=== PATIENT | male | born 1935 | race Caucasian/White ===

== ENCOUNTER 2016-12-30 07:31 | Day surgery (SDC) | payer MEDICARE, BC ==
[~2016-12-30 07:31] MED LIST: Lactated Ringers 1,000 ML IV SCH
[2016-12-30] MEDS ORDERED: Lidocaine 2% 100 MG/5 ML Syringe IVPUSH ONE (07:32)
[2016-12-30] MEDS ORDERED: Propofol 200 MG/20 ML SDV IV ONE (07:32)
--- NOTE | 2016-12-30 09:43 | PCM.OPNOTE ---
- General Post-Op/Procedure Note Date of Surgery/Procedure: 12/30/16 Operative Procedure(s): egd with bx. c scope with bx Findings: gastritis ascending colon polyp x2 sigmoid diverticulosis Pre Op Diagnosis: heme + stools Post-Op Diagnosis: gastritis. ascending colon polyp x2. sigmoid diverticulosis Anesthesia Technique: MAC Primary Surgeon: Esteban Shah Anesthesia Provider: Magdi Levine Pathology: stomach duodenum ascending colon polyp x2 Complications: None Condition: Good Free Text/Narrative:: see dictation
--- NOTE | 2016-12-30 10:26 | OR ---
DATE OF OPERATION: 12/30/2016 SURGEON: Esteban Shah MD PROCEDURE PERFORMED: Esophagogastroduodenoscopy and colonoscopy; both with cold forceps biopsy. PREOPERATIVE DIAGNOSIS: Heme-positive stools. POSTOPERATIVE DIAGNOSIS: Gastritis and ascending colon polyps x2 as well as sigmoid diverticulosis. INDICATIONS FOR PROCEDURE: This is a 81-year-old white male, who is referred with a recent laboratory finding of blood in the stool. He was offered and accepted upper and lower endoscopy. DESCRIPTION OF PROCEDURE: After an excellent IV sedation was administered, the bite block was inserted. The flexible endoscope was passed without difficulty down the patient's esophagus into the stomach. The stomach was insufflated, scope was passed through the pylorus to the second portion of the duodenum and slowly withdrawn. The following findings were noted. Duodenum was unremarkable. Stomach demonstrated diffuse gastritis as well as several hemorrhagic punctate point. Biopsies were taken. Esophagus was unremarkable. The stomach was deflated, and the scope was removed. Our attention was then turned to the colon. Digital rectal exam was performed. No marked abnormality was noted. Flexible colonoscope was inserted and advanced to the cecum without difficulty. The prep was excellent. The following findings were noted. In the descending colon, two polyps within about 5 cm of each other and appeared to be hyperplasia. These were biopsied and sent for permanent. Transverse colon was unremarkable. Descending colon was unremarkable. Sigmoid, mild diverticulosis. Rectum and anus were unremarkable. Colon was deflated. Scope was removed. The patient tolerated the procedure well and was taken to recovery in good condition. /[id number] /MODL
[2016-12-30 11:38] VITALS: BP 139/80
== END 2016-12-30 11:30 | disposition home or self-care (01) ==
LOC: FB.SDS 07:31
PROVIDERS: ATTEND Surgery
DX: K29.50 Unspecified chronic gastritis without bleeding (principal); D12.2 Benign neoplasm of ascending colon; K57.30 Diverticulosis of large intestine without perforation or abscess without bleeding; N40.1 Benign prostatic hyperplasia with lower urinary tract symptoms; E78.00 Pure hypercholesterolemia, unspecified; G47.30 Sleep apnea, unspecified; Z79.82 Long term (current) use of aspirin; Z79.899 Other long term (current) drug therapy; Z98.890 Other specified postprocedural states; Z96.643 Presence of artificial hip joint, bilateral
CPT/HCPCS: 00810; 43239; 45380; 88305; 88342; J2704; J7120

== ENCOUNTER 2021-10-15 07:51 | Day surgery (SDC) | payer MEDICARE, BC ==
[~2021-10-15 07:51] MED LIST changes: +Sodium Chloride 0.9% 10 ML Syringe FLUSH PRN
[2021-10-15] MEDS ORDERED: Propofol 200 MG/20 ML SDV IV ONE (07:52)
[2021-10-15 11:09] VITALS: BP 132/69; PULSE 56
== END 2021-10-15 10:48 | disposition home or self-care (01) ==
LOC: FB.SDS 07:51
PROVIDERS: ATTEND Surgery
DX: Z12.11 Encounter for screening for malignant neoplasm of colon (principal); D12.6 Benign neoplasm of colon, unspecified; K57.30 Diverticulosis of large intestine without perforation or abscess without bleeding; K42.9 Umbilical hernia without obstruction or gangrene; G47.30 Sleep apnea, unspecified; E78.00 Pure hypercholesterolemia, unspecified; Z79.899 Other long term (current) drug therapy; Z98.890 Other specified postprocedural states
CPT/HCPCS: 00811; 45385; 88305; J2704; J7120